=== PATIENT | female | born 1970 | race Caucasian/White ===

== ENCOUNTER → 2017-02-17 | Outpatient (CLI) | payer OTHER | LOC: BRMIMAGING 11:40 | PROVIDERS: ATTEND Internal Medicine | DX: M79.671 Pain in right foot (principal); M25.571 Pain in right ankle and joints of right foot | CPT/HCPCS: 73610-PO; 73630-PO ==

== ENCOUNTER → 2017-02-24 | Outpatient (CLI) | payer OTHER | LOC: BRMIMAGING 07:39 | PROVIDERS: ATTEND Obstetrics & Gynecology | DX: Z12.31 Encounter for screening mammogram for malignant neoplasm of breast (principal) | CPT/HCPCS: G0202 ==

== ENCOUNTER → 2017-05-29 | Outpatient (CLI) | payer OTHER | LOC: BRMIMAGING 08:58 | PROVIDERS: ATTEND Internal Medicine | DX: S63.501A Unspecified sprain of right wrist, initial encounter (principal); X50.9XXA Other and unspecified overexertion or strenuous movements or postures, initial encounter | CPT/HCPCS: 73110-PO ==